=== PATIENT | female | born 1970 | race Caucasian/White ===

== ENCOUNTER 2017-07-01 13:19 | Inpatient (IN) | payer SELFPAY ==
[~2017-07-01] VITALS: Ht 160 cm; Wt 70.3 kg
[2017-07-01 14:27] LABS: BASOPHILS % 0.8 % (0.0-2.0); EOSINOPHILS % 1.6 % (0.0-5.0); HEMOGLOBIN. 7.4 g/dL (12.0-16.0); LYMPHOCYTES % 31.2 % (20.0-50.0); MEAN CORPUSCULAR HEMOGLOBIN 17.8 pg (28.0-32.0); MEAN CORPUSCULAR VOLUME 57.7 fL (81.0-99.0); MEAN PLATELET VOLUME 8.3 fl (7.4-10.4); MONOCYTES % 7.6 % (2.0-8.0); NEUTROPHILS % 58.8 % (40.0-76.0); PLATELET 360 x1000/uL (130-400); RED BLOOD CELL COUNT 4.16 mill/uL (4.2-5.4); RED CELL DISTRIBUTION WIDTH 19.9 % (11.6-14.6)
[2017-07-01 14:37] LABS: D-DIMER 0.41 mg/L FEU (<0.50); PROTHROMBIN TIME 10.7 sec (9.4-11.6)
[2017-07-01 14:40] LABS: B-HCG QUANTITATIVE < 1 mIU/mL (<3); CARBON DIOXIDE 26 mEq/L (21-32); CHLORIDE 106 mEq/L (98-107); ETHANOL BLOOD < 10 mg/dL; TROPONIN I < 0.02 ng/mL (0.00-0.04)
[2017-07-01 14:50] LABS: PLATELET ESTIMATE NORMAL
[2017-07-01] MEDS ORDERED: DIPHENHYDRAMINE 50MG/ML VIAL IV PRN (16:45)
[2017-07-01] MEDS ORDERED: DOCUSATE SODIUM 100MG CAPSULE PO PRN (16:45)
[2017-07-01] MEDS ORDERED: KETOROLAC 15MG/ML VIAL IV PRN (16:45)
[2017-07-01] MEDS ORDERED: NITROGLYCERIN 0.4MG TABLET SL SL PRN (16:45)
[2017-07-01] MEDS ORDERED: MAGNESIUM/ALUMINUM HYDROXIDE/SIMETHICONE 30ML UDC PO PRN (16:45)
[2017-07-01] MEDS ORDERED: IPRATROPIUM/ALBUTEROL 0.5-3(2.5)MG/3ML NEB INH PRN (16:45)
[2017-07-01] MEDS ORDERED: LORAZEPAM 0.5MG TABLET PO PRN (16:45)
[2017-07-01] MEDS ORDERED: ONDANSETRON HCL 4MG/2ML VIAL IV PRN (16:45)
[2017-07-01] MEDS ORDERED: CLONIDINE 0.1MG TABLET PO PRN (16:45)
[2017-07-01] MEDS ORDERED: ACETAMINOPHEN 325MG TABLET PO PRN (16:45)
[2017-07-01] MEDS ORDERED: GUAIFENESIN 200MG/10ML SUGAR FREE UDC PO PRN (16:45)
[2017-07-01 17:01] LABS: TOTAL IRON BINDING CAPACITY 488 ug/dL (250-450)
[2017-07-01 17:29] LABS: FOLIC ACID (FOLATE) SERUM 11.9 ng/mL (>5.38)
[2017-07-01 20:00] VITALS: BP 148/61
[2017-07-01] MEDS ORDERED: ZOLPIDEM TARTRATE 5MG TABLET PO PRN (20:30)
[2017-07-01] MEDS ORDERED: NA PHOS,M-B/NA PHOS,DI-BA ENEMA 118ML PR PRN (20:30)
[2017-07-01] MEDS ORDERED: ENOXAPARIN 40MG/0.4ML SYR SUBCUT SCH (21:00)
[2017-07-01 22:38] VITALS: BP 115/60
[2017-07-01] MEDS: FAMOTIDINE 20MG/2ML VIAL IV SCH (23:17)
[2017-07-02] VITALS: BP 138/76
[2017-07-02 08:30] LABS: BASOPHILS % 0.7 % (0.0-2.0); EOSINOPHILS % 2.1 % (0.0-5.0); HEMATOCRIT. 23.9 % (36.0-48.0); HEMOGLOBIN. 7.3 g/dL (12.0-16.0); LYMPHOCYTES % 35.9 % (20.0-50.0); MEAN CORPUSCULAR HEMOGLOBIN 17.7 pg (28.0-32.0); MEAN CORPUSCULAR VOLUME 57.9 fL (81.0-99.0); MEAN PLATELET VOLUME 8.5 fl (7.4-10.4); NEUTROPHILS % 52.3 % (40.0-76.0); PLATELET 364 x1000/uL (130-400); RED BLOOD CELL COUNT 4.13 mill/uL (4.2-5.4); RED CELL DISTRIBUTION WIDTH 20.2 % (11.6-14.6)
[2017-07-02 08:55] VITALS: BP 115/61
[2017-07-02] MEDS: FAMOTIDINE 20MG/2ML VIAL IV SCH (09:02)
[2017-07-02] MEDS: FERROUS SULFATE 300MG/5ML UDC PO SCH ×2 (09:02→11:13)
[2017-07-02 11:30] VITALS: BP 97/50
[2017-07-02 11:44] VITALS: BP 97/50
== END 2017-07-02 12:15 | disposition home or self-care (01) | DRG 532 ==
LOC: ER 13:56 → CANRESERV 14:46 → ENRESERV 14:46 → 6EST 16:02 → EDBEDREQSVC 16:13 → EDBEDREQTM 16:13 → EDBEDREQ 16:13 → ENRESERV 19:33
PROVIDERS: ADMIT Internal Medicine; ATTEND Internal Medicine
DX: D25.9 Leiomyoma of uterus, unspecified (principal); D50.9 Iron deficiency anemia, unspecified; N83.201 Unspecified ovarian cyst, right side; N92.0 Excessive and frequent menstruation with regular cycle; N93.8 Other specified abnormal uterine and vaginal bleeding
CPT/HCPCS: 36415; 71010; 76830; 76856; 80053; 82607; 82746; 83036; 83540; 83550; 83690; 83880; 84484; 84702; 85025; 85379; 85610; 86850; 86900; 86920; 93005; 99285; G0482; J1650; J3490